=== PATIENT | male | born 1990 | race African-American/Black ===

== ENCOUNTER → 2018-01-15 | Outpatient (CLI) | payer OTHER ==
--- NOTE | 2018-01-15 17:06 | XR ---
EXAMINATION TYPE: XR ankle complete LT DATE OF EXAM: 01/15/2018 COMPARISON: NONE HISTORY: Ankle pain TECHNIQUE: 3 views FINDINGS: Ankle mortise is anatomic. I see no fracture nor dislocation. Joint spaces are normal. IMPRESSION: Negative left ankle exam.
== END | disposition home or self-care (01) ==
LOC: RADXRMAIN 16:39
PROVIDERS: ATTEND Emergency Medicine
DX: S90.02XA Contusion of left ankle, initial encounter (principal)

== ENCOUNTER 2018-01-21 19:41 | Emergency (ER) | payer BC, OTHER ==
[2018-01-21 20:21] VITALS: BP 142/89; PULSE 61; RESP 16; TEMP 98.5
== END 2018-01-21 20:39 ==
LOC: EC 19:41
DX: Z02.89 Encounter for other administrative examinations (principal)

== ENCOUNTER → 2020-04-05 | Outpatient (CLI) | payer SELFPAY | END | disposition home or self-care (01) | LOC: LABWHC1 13:50 | PROVIDERS: ATTEND Emergency Medicine | DX: Z20.828 Contact with and (suspected) exposure to other viral communicable diseases (principal) | CPT/HCPCS: U0003; C9803 ==

== ENCOUNTER 2022-04-29 00:35 | Emergency (ER) | payer BC, OTHER ==
[2022-04-29 00:39] VITALS: TEMP 98
[2022-04-29] MEDS ORDERED: LIDOCAINE 1% INJ 10MG/ML (30 ML VIAL-PF) SQ ONE (01:37)
--- NOTE | 2022-04-29 02:09 | ED ---
Head Injury HPI - General Chief complaint: Head Injury Stated complaint: Head Injury Time Seen by Provider: 04/29/22 01:21 Source: patient, RN notes reviewed Mode of arrival: ambulatory Limitations: no limitations - History of Present Illness Initial comments: Patient is a pleasant 32-year-old -H[place] male presents to the emergency room after an injury at work in which a part fell onto his head and hit him on the corner of the eye. He did ensue a laceration to the corner of his eyebrow. He reports that he had some mild dizziness just after the impact but denies any loss of consciousness dizziness at this time her headache not directly related to eyebrow laceration and swelling. He reports wearing his hard hat at the time of the injury but did not have safety googles available to him to have intact. He denies any blurred or double vision, nausea vomiting, lethargy or weakness. He has no significant past medical historyarticular medica tions on a regular basis. - Related Data Previous Rx's Medication Instructions Recorded HYDROcodone/APAP 5-325MG [[place] 5] 1 each PO Q4HR PRN #20 tab 01/25/15 Ibuprofen [Motrin] 600 mg PO Q8HR PRN #30 tab 01/25/15 Penicillin V Potassium [Pen Vee K] 500 mg PO QID #28 tab 01/25/15 Hydrocodone/Acetaminophen [[place] 1 tab PO Q6HR PRN #20 tab 12/14/15 5-325] Sulfamethox-Tmp 800-160Mg [Bactrim 2 each PO Q12HR #40 tab 12/14/15 Ds] Allergies/Adverse reactions: Allergies Allergy/AdvReac Type Severity Reaction Status Date / Time No Known Allergies Allergy Verified 04/29/22 00:36 Review of Systems ROS Statement: Those systems with pertinent positive or pertinent negative responses have been documented in the HPI. ROS Other: All systems not noted in ROS Statement are negative. Past Medical History Past Medical History: No Reported History History of Any Multi-Drug Resistant Organisms: None Reported Past Surgical History: No Surgical Hx Reported Past Psychological History: No Psychological Hx Reported Smoking Status: Current every day smoker, Vaper Past Alcohol Use History: None Reported, Occasional Past Drug Use History: None Reported General Exam Limitations: no limitations General appearance: alert, in no apparent distress Head exam: Present: normocephalic Expanded Head exam: Present: laceration (Outer corner right eyebrow 1 cm in length no foreign body mild hematoma beneath laceration) Eye exam: Present: normal appearance, PERRL. Absent: scleral icterus, conjunctival injection, periorbital swelling, periorbital tenderness ENT exam: Present: normal exam, mucous membranes moist Neck exam: Present: normal inspection, full ROM Respiratory exam: Absent: respiratory distress, accessory muscle use Cardiovascular Exam: Present: regular rate GI/Abdominal exam: Absent: distended Extremities exam: Present: normal inspection. Absent: pedal edema, joint swelling Back exam: Present: normal inspection, full ROM Neurological exam: Present: alert, oriented X3, CN II-XII intact Psychiatric exam: Present: normal affect, normal mood Skin exam: Present: other (Laceration as above) Course Vital Signs 04/29/22 00:37 Temperature 98.0 F Pulse Rate 79 Respiratory 16 Rate Blood Pressure 152/91 O2 Sat by Pulse 100 Oximetry Procedures - Laceration Laceration #1 Consent Obtained: verbal consent Indication: laceration Site: face (Right eyebrow corner) Size (cm): 1 Description: linear Depth: simple, single layer Anesthetic Used: lidocaine 1% Anesthesia Technique: local infiltration Pre-repair: irrigated extensively Type of Sutures: nylon Size of Sutures: 5-0 Number of Sutures: 2 Technique: simple, interrupted Patient Tolerated Procedure: well, no complications Medical Decision Making - Medical Decision Making 32-year-old -H[place]uran male presenting to the emergency department after a part fell onto him at work earlier today with safety hard hat on contact at the time of event and no loss of consciousness or severe concussive symptoms at the time of the event are normal. No indication for diagnostic imaging or laboratory studies. Will plan for laceration closure of laceration to right eyebrow. Tolerated laceration closure well without complications. Wound care and suture care reviewed with patient. Advised follow-up with primary care provider along with suture removal in 5-7 days either with primary care provider or return to the emergency room. Discussed concussive symptoms and advised to return to the emergency department if severe symptoms occur. Will discharge home in stable condition. Case discussed with Dr. Montgomery Disposition Clinical Impression: Laceration of eyebrow, right Disposition: HOME SELF-CARE Condition: Stable Instructions (If sedation given, give patient instructions): Care For Your Stitches (ED), Laceration (ED), Concussion (ED) Additional Instructions: Please keep wound clean and dry. Monitor for signs and symptoms of infection and seek medical attention as appropriate if symptoms occur. Monitor for signs and symptoms of concussion and if symptoms occur if symptoms are severe please return to the emergency room. Please follow-up with your primary care provider and have for suture removed in 5-7 days. Please return to the Emergency Department if symptoms worsen or any other concerns. Is patient prescribed a controlled substance at d/c from ED?: No Referrals: None,Stated [Primary Care Provider] - 1-2 days Time of Disposition: 02:07
[2022-04-29 02:26] VITALS: BP 135/83; PULSE 55; RESP 18
== END 2022-04-29 02:26 | disposition home or self-care (01) ==
LOC: EC 00:35
DX: S01.111A Laceration without foreign body of right eyelid and periocular area, initial encounter (principal); F17.290 Nicotine dependence, other tobacco product, uncomplicated; W22.8XXA Striking against or struck by other objects, initial encounter
CPT/HCPCS: 99283; 12011; J2001